=== PATIENT | male | born 1955 | race Caucasian/White ===

== ENCOUNTER 2017-09-28 19:18 | Emergency (ER) ==
[2017-09-28 19:21] VITALS: BP 110/73; TEMP 98.1; BMI 25.1
[2017-09-28] MEDS ORDERED: DECADRON 4 MG/ML SDV IM STA (19:47)
--- NOTE | 2017-09-28 19:54 | ED.PDOC ---
General ED Provider: Dr. WANDA NORTON Chief Complaint: Fever Stated Complaint: COUGHING, CONGESTED. FEVERISH. Time Seen by Physician: 19:54 Primary Care Provider: JEFFERSON WALL Nursing and Triage Documentation Reviewed and Agree: Yes Reviewed sepsis parameters & appropriate labs ordered?: Yes System Inflammatory Response Syndrome: Not Applicable Sepsis Protocol: For patient's 13 years and over: Temp is 96.8 and below OR 101 and greater Pulse >90 BPM Resp >20/minute Acutely Altered Mental Status Are patient's symptoms suggestive of a new infection, such as: -Pneumonia -Skin, Soft Tissue -Endocarditis -UTI -Bone, Joint Infection -Implantable Device -Acute Abdominal Infection -Wound Infection -Meningitis -Blood Stream Catheter Infection -Unknown Respiratory Complaint Exam - Respiratory Complaint/Exam Symptoms Are: Still present Timing: Constant Initial Severity: Mild Current Severity: Mild Location: Chest Character: Reports: Productive cough Aggravating: Reports: Allergens, URI Alleviating: Reports: None Associated Signs and Symptoms: Reports: Fever, URI, Nasal congestion. Denies: Rapid breathing, Dyspnea, Chills, Chest pain, Pleuritic chest pain, Wheezing, Hemoptysis, Dizziness, Calf pain, Calf swelling, Edema, Hoarseness, Sinus discomfort, Vomiting, Sore throat, Weight loss, Decreased oral intake, Increased thirst, Increased appetite, Increased urination History of Healthcare-Acquired Pneumonia: No Related Surgical History: Reports: None Pulmonary Embolism Risk Factors: None Cardiac Risk Factors: Reports: None Pseudomonas Risk Factors: Reports: None Tuberculosis Risk Factors: Reports: None Status Asthmaticus Risk Factors: Reports: None Home Oxygen Use: No Recent Stress Test: No Recent Echo/LV Function: No Current Antibiotic Use: No Current Asthma Medication Use: No Respiratory Distress: None Inadequate Respiratory Effort: No Dysphagia Present: No Stridor Present: No JVD Present: No Accessory Muscle Use: No Retractions: Not Present Diminished Breath Sounds: No Sinus Tenderness: None Grunting Respirations: No Kussmaul Respirations: No Differential Diagnoses: Pneumonia, Bronchitis, Influenza Review of Systems - Review Of Systems Constitutional: Reports: Fever, Malaise Eyes: Reports: No symptoms Ears, Nose, Mouth, Throat: Reports: No symptoms Respiratory: Reports: Cough Cardiac: Reports: No symptoms GI: Reports: No symptoms : Reports: No symptoms Musculoskeletal: Reports: No symptoms Skin: Reports: No symptoms Neurological: Reports: No symptoms Endocrine: Reports: No symptoms Hematologic/Lymphatic: Reports: No symptoms All Other Systems: Reviewed and Negative Past Medical History - Past Medical History Previously Healthy: Yes Endocrine: Reports: None Cardiovascular: Reports: None Respiratory: Reports: None Hematological: Reports: None Gastrointestinal: Reports: None Genitourinary: Reports: None Neuro/Psych: Reports: None Musculoskeletal: Reports: None Cancer: Reports: None - Surgical History General Surgical History: Reports: None - Family History Family History: Reports: None - Social History Smoking Status: Current every day smoker, Heavy tobacco smoker Smoking Cessation Counseling Time: > 10 min Hx Substance Use: No Alcohol Screening: Occasionally - Immunizations Tetanus Shot up to Date: Yes Physical Exam - Physical Exam Appearance: Ill-appearing Ill-appearing: Mild Eyes: STEVEN, EOMI, Conjunctiva clear ENT: Ears normal, Nose normal, Oropharynx normal Respiratory: Airway patent, Breath sounds clear, Breath sounds equal, Respirations nonlabored Cardiovascular: RRR, Pulses normal, No rub, No murmur GI/: Soft, Nontender, No masses, Bowel sounds normal, No Organomegaly Musculoskeletal: Normal strength, ROM intact, No edema, No calf tenderness Skin: Warm, Dry, Normal color Neurological: Sensation intact, Motor intact, Reflexes intact, Cranial nerves intact, Alert, Oriented Psychiatric: Affect appropriate, Mood appropriate Critical Care Note - Critical Care Note Total Time (mins): 0 Course - Course Orders, Labs, Meds: Lab Review 09/28/17 19:49 Influenza A (Rapid) Negative Influenza B (Rapid) Negative Orders Category Date Time Status MOLECULAR GROUP A STREP Stat LAB 09/28/17 19:49 Results RAPID FLU A/B Stat LAB 09/28/17 19:49 Completed STREP SCREEN Stat LAB 09/28/17 19:49 Results Dexamethasone 4 mg/ml Inj [Decadron 4 mg/ml Sdv] MEDS 09/28/17 19:47 Discontinued 4 mg IM ONCE STA CHEST, 2 VIEWS PA & LAT Stat RADS 09/28/17 19:47 Completed Medications Discontinued Medications Generic Name Dose Route Start Last Admin Trade Name Freq PRN Reason Stop Dose Admin Dexamethasone Sodium Phosphate 4 mg 09/28/17 19:47 09/28/17 19:56 Decadron 4 Mg/Ml Sdv IM 09/28/17 19:48 4 mg ONCE STA Administration Vital Signs: Temp Pulse Resp BP Pulse Ox 09/28/17 19:18 98.1 F 85 20 110/73 96 Departure - Departure Time of Disposition: 19:57 Disposition: HOME SELF-CARE Discharge Problem: URTI (acute upper respiratory infection) Instructions: Upper Respiratory Infection (ED) Condition: Good Pt referred to PMD for follow-up: Yes Additional Instructions: Increase Hydration Tylenol or Ibuprofen prn Has f/u with PMD in am Allergies/Adverse Reactions: Allergies codeine Adverse Reaction (Verified 05/03/13 16:37) Penicillins Adverse Reaction (Verified 12/06/14 13:48) Home Medications: Ambulatory Orders Albuterol Sulfate [Ventolin Hfa] 18 gm IH DIRECTED 05/03/13 Cyclobenzaprine HCl 10 mg PO BID 05/03/13 Duloxetine HCl [Cymbalta] 60 mg PO BEDTIME 05/03/13 Esomeprazole Magnesium [Nexium] 40 mg PO DAILY PRN 05/03/13 Fluticasone Propionate 110 Mcg [Flovent Hfa 110 Mcg] 110 mcg MARCY DAILY 05/03/13 Omeprazole [Prilosec] 20 mg PO QDAC PRN 05/03/13 Zolpidem Tartrate 10 mg PO BEDTIME 05/03/13 Lorazepam [Ativan] 0.5 mg PO QID #20 tablet 12/06/14 Oxycodone-Acetaminophen 10-325 [Percocet 10-325] 1 tab PO Q8H PRN 09/28/17 Disposition Discussed With: Patient
--- NOTE | 2017-09-28 20:28 | DI ---
EXAM: Chest two views HISTORY: Coughing COMPARISON: 04/12/2009 TECHNIQUE: Two views of the chest were performed FINDINGS: No airspace consolidation. Granulomatous calcification. There is no pleural effusion or pneumothorax. The heart is normal in size. The mediastinal contour is normal. There are no acute a bnormalities of the bones. There is a spinal stimulator. Cervical spinal fusion hardware. IMPRESSION: No acute cardiopulmonary process.
[2017-09-28 20:32] LABS: FLU INTERNAL QC INTERNAL QC VALID; MOLECULAR FLU A NEGATIVE (NEGATIVE); MOLECULAR FLU B NEGATIVE (NEGATIVE)
== END 2017-09-28 20:20 | disposition home or self-care (01) ==
LOC: ED 19:18
DX: J06.9 Acute upper respiratory infection, unspecified (principal); F17.210 Nicotine dependence, cigarettes, uncomplicated
CPT/HCPCS: 87651; 87804; 87880; 96372; 99283

== ENCOUNTER 2017-10-02 13:19 | Inpatient (IN) ==
[2017-10-02 13:23] VITALS: BMI 25.8
[2017-10-02] MEDS ORDERED: SOLU-MEDROL 125 MG IVP STA (13:58)
[2017-10-02] MEDS ORDERED: DUONEB NEB STA ×2 (13:58→14:59)
[2017-10-02] MEDS ORDERED: SOLU-MEDROL 40 MG IVP STA (14:03)
[2017-10-02] MEDS ORDERED: MORPHINE 2 MG/ML SYRINGE IM STA (14:55)
[2017-10-02] MEDS ORDERED: ZITHROMAX PO STA ×2 (14:55→17:43)
[2017-10-02] MEDS ORDERED: ROCEPHIN IM STA (14:55)
[2017-10-02] MEDS ORDERED: LIDOCAINE HCL 1% SDV SUBCUT STA (14:55)
[2017-10-02] MEDS ORDERED: MORPHINE 2 MG/ML SYRINGE IVP STA (15:02)
[2017-10-02] MEDS ORDERED: ROCEPHIN 1 GM in SODIUM CHLORIDE 50 ML IV STA (15:02)
[2017-10-02] MEDS ORDERED: ROCEPHIN ONE (15:14)
--- NOTE | 2017-10-02 15:49 | CT ---
EXAM: CTA of the chest. History: Short of breath Comparison: Chest radiograph 10/02/2017 Technique: Multiplanar CT images through the thorax were obtained following administration of IV con trast. MIP images and 3-D reconstructions were also obtained. Findings: Heart size is normal. Trace anterior pericardial fluid. Great vessels are unremarkable. N o pulmonary arterial filling defects. No axillary adenopathy. No pathologically enlarged mediastina l lymph nodes. Bilateral hilar lymphadenopathy measuring up to 1.5 cm and 1.9 cm on the left. Diffus e bronchial wall thickening and patchy bilateral lung infiltrates with a ground-glass opacities and m icronodules. No pleural fluid and no pneumothorax. Mild emphysema. Within the visualized upper abdomen, there is pancreatic atrophy. Status post cholecystectomy. Mild right renal pelvicaliectasis of unknown etiology. No acute osseous abnormalities. Spinal stimulator device. Impression: 1. Bilateral pneumonia. 2. Bilateral hilar lymphadenopathy could be reactive or neoplastic. Follow-up recommended. 3. Pancreatic atrophy. 4. Mild right renal pelvicaliectasis but no etiology. Five. Mild emphysema
--- NOTE | 2017-10-02 16:18 | ED.PDOC ---
General ED Provider: Dr. TRAM THOMPSON Chief Complaint: Shortness of Air Stated Complaint: shortness of breath Time Seen by Physician: 13:30 Mode of Arrival: Walk-In Information Source: Patient Exam Limitations: No limitations Primary Care Provider: JEFFERSON WALL Nursing and Triage Documentation Reviewed and Agree: Yes Reviewed sepsis parameters & appropriate labs ordered?: Yes (seen with staff short of air wheezing) System Inflammatory Response Syndrome: Not Applicable Sepsis Protocol: For patient's 13 years and over: Temp is 96.8 and below OR 101 and greater Pulse >90 BPM Resp >20/minute Acutely Altered Mental Status Are patient's symptoms suggestive of a new infection, such as: -Pneumonia -Skin, Soft Tissue -Endocarditis -UTI -Bone, Joint Infection -Implantable Device -Acute Abdominal Infection -Wound Infection -Meningitis -Blood Stream Catheter Infection -Unknown Respiratory Complaint Exam - Respiratory Complaint/Exam Onset/Duration: 2 days of cough short of air flu like symptoms Symptoms Are: Still present Timing: Intermittent Initial Severity: Moderate Current Severity: Mild Location: Nose, Throat, Chest Character: Reports: Non-productive cough Aggravating: Reports: URI, Weather, Deep breaths, Recumbent position Alleviating: Reports: Bronchodilators, Spontaneous resolution Associated Signs and Symptoms: Reports: Fever, Chills, Wheezing, URI, Nasal congestion, Decreased oral intake. Denies: Rapid breathing, Dyspnea, Chest pain , Pleuritic chest pain, Hemoptysis, Dizziness, Calf pain, Calf swelling, Edema, Hoarseness, Sinus discomfort, Vomiting, Sore throat, Weight loss, Increased thirst, Increased appetite, Increased urination History of Healthcare-Acquired Pneumonia: No Related Surgical History: Reports: None Pulmonary Embolism Risk Factors: None Cardiac Risk Factors: Reports: None Pseudomonas Risk Factors: Reports: None Tuberculosis Risk Factors: Reports: None Status Asthmaticus Risk Factors: Reports: None Home Oxygen Use: No Recent Stress Test: No Recent Echo/LV Function: No Current Antibiotic Use: No Current Asthma Medication Use: No Respiratory Distress: None Inadequate Respiratory Effort: No Dysphagia Present: No Stridor Present: No JVD Present: No Accessory Muscle Use: No Retractions: Not Present Diminished Breath Sounds: No Sinus Tenderness: None Grunting Respirations: No Kussmaul Respirations: No Differential Diagnoses: Pneumonia, Bronchitis Review of Systems - Review Of Systems Constitutional: Reports: No symptoms Eyes: Reports: No symptoms Ears, Nose, Mouth, Throat: Reports: No symptoms Respiratory: Reports: No symptoms Cardiac: Reports: No symptoms GI: Reports: No symptoms : Reports: No symptoms Musculoskeletal: Reports: No symptoms Skin: Reports: No symptoms Neurological: Reports: No symptoms Endocrine: Reports: No symptoms Hematologic/Lymphatic: Reports: No symptoms All Other Systems: Reviewed and Negative Past Medical History - Past Medical History Previously Healthy: Yes Endocrine: Reports: None Cardiovascular: Reports: None Respiratory: Reports: None Hematological: Reports: None Gastrointestinal: Reports: None Genitourinary: Reports: None Neuro/Psych: Reports: None Musculoskeletal: Reports: None Cancer: Reports: None - Surgical History General Surgical History: Reports: None - Family History Family History: Reports: None - Social History Smoking Status: Current every day smoker, Heavy tobacco smoker Hx Substance Use: No Alcohol Screening: Occasionally - Immunizations Tetanus Shot up to Date: No Physical Exam - Physical Exam Appearance: Ill-appearing Ill-appearing: Moderate Pain Distress: Moderate Eyes: STEVEN, EOMI, Conjunctiva clear ENT: Ears normal, Nose normal, Oropharynx normal Respiratory: Breath sounds diminished, Rhonchi Cardiovascular: RRR, Pulses normal, No rub, No murmur GI/: Soft, Nontender, No masses, Bowel sounds normal, No Organomegaly Musculoskeletal: Normal strength, ROM intact, No edema, No calf tenderness Skin: Warm, Dry, Normal color Neurological: Sensation intact, Motor intact, Reflexes intact, Cranial nerves intact, Alert, Oriented Psychiatric: Affect appropriate, Mood appropriate Interpretation - Radiology Interpretation Radiology Interpretation By: Radiologist Radiology Results: Positive (pneumonia) Critical Care Note - Critical Care Note Total Time (mins): 0 Course - Course Hematology/Chemistry: 10/02/17 14:05 10/02/17 14:05 Orders, Labs, Meds: Lab Review 10/02/17 10/02/17 10/02/17 13:59 14:05 14:05 WBC 8.00 RBC 4.32 L Hgb 13.3 L Hct 38.6 L MCV 89.4 MCH 30.8 MCHC 34.5 RDW Coeff of Irina 13.1 Plt Count 303 Neutrophils % (Manual) 76.0 H Band Neutrophils % 3.0 Lymphocytes % (Manual) 9.0 L Monocytes % (Manual) 9.0 Reactive Lymphocytes 3.0 Anisocytosis Not present D-Dimer (Manual) Puncture Site R rad O2 Saturation 90.0 L ABG pH 7.45 ABG pCO2 38.0 ABG pO2 57.0 L* ABG HCO3 26.8 H ABG Total CO2 28 ABG Base Excess 3 H Leandro Test + FiO2 % 21.0 Sodium 136 Potassium 3.6 Chloride 98 Carbon Dioxide 29 Anion Gap 12.6 BUN 9 Creatinine 0.76 Estimated GFR (MDRD) 104.00 BUN/Creatinine Ratio 11.84 Glucose 115 Lactic Acid Calcium 9.7 Total Bilirubin < 0.3 AST 16 ALT 21 Alkaline Phosphatase 89 Total Creatine Kinase 48 Troponin I < 0.0100 B-Natriuretic Peptide Total Protein 7.4 Albumin 3.5 Globulin 3.9 Albumin/Globulin Ratio 0.90 Procalcitonin Urine Color Urine Clarity Urine pH Ur Specific [place] Urine Protein Urine Glucose (UA) Urine Ketones Urine Blood Urine Nitrite Urine Bilirubin Urine Urobilinogen Ur Leukocyte Esterase Influenza A (Rapid) Influenza B (Rapid) 10/02/17 10/02/17 10/02/17 14:05 14:05 14:05 WBC RBC Hgb Hct MCV MCH MCHC RDW Coeff of Irina Plt Count Neutrophils % (Manual) Band Neutrophils % Lymphocytes % (Manual) Monocytes % (Manual) Reactive Lymphocytes Anisocytosis D-Dimer (Manual) 552.04 Puncture Site O2 Saturation ABG pH ABG pCO2 ABG pO2 ABG HCO3 ABG Total CO2 ABG Base Excess Leandro Test FiO2 % Sodium Potassium Chloride Carbon Dioxide Anion Gap BUN Creatinine Estimated GFR (MDRD) BUN/Creatinine Ratio Glucose Lactic Acid 14.2 Calcium Total Bilirubin AST ALT Alkaline Phosphatase Total Creatine Kinase Troponin I B-Natriuretic Peptide 200 H Total Protein Albumin Globulin Albumin/Globulin Ratio Procalcitonin Urine Color Urine Clarity Urine pH Ur Specific [place] Urine Protein Urine Glucose (UA) Urine Ketones Urine Blood Urine Nitrite Urine Bilirubin Urine Urobilinogen Ur Leukocyte Esterase Influenza A (Rapid) Influenza B (Rapid) 10/02/17 10/02/17 10/02/17 14:05 14:05 15:43 WBC RBC Hgb Hct MCV MCH MCHC RDW Coeff of Irina Plt Count Neutrophils % (Manual) Band Neutrophils % Lymphocytes % (Manual) Monocytes % (Manual) Reactive Lymphocytes Anisocytosis D-Dimer (Manual) Puncture Site O2 Saturation ABG pH ABG pCO2 ABG pO2 ABG HCO3 ABG Total CO2 ABG Base Excess Leandro Test FiO2 % Sodium Potassium Chloride Carbon Dioxide Anion Gap BUN Creatinine Estimated GFR (MDRD) BUN/Creatinine Ratio Glucose Lactic Acid Calcium Total Bilirubin AST ALT Alkaline Phosphatase Total Creatine Kinase Troponin I B-Natriuretic Peptide Total Protein Albumin Globulin Albumin/Globulin Ratio Procalcitonin < 0.05 Urine Color Yellow Urine Clarity Clear Urine pH 7.5 Ur Specific [place] 1.015 Urine Protein Negative Urine Glucose (UA) Negative Urine Ketones Negative Urine Blood Negative Urine Nitrite Negative Urine Bilirubin Negative Urine Urobilinogen 1.0 Ur Leukocyte Esterase Negative Influenza A (Rapid) Negative by naat Influenza B (Rapid) Positive by naat H Orders Category Date Time Status ABG DRAW REQUEST Stat CARDIO 10/02/17 14:00 Completed EKG-(ED ONLY) Stat CARDIO 10/02/17 13:57 Completed NEBULIZER TREATMENT Stat CARDIO 10/02/17 13:58 Completed NEBULIZER TREATMENT Stat CARDIO 10/02/17 14:59 Completed NPO REMINDER: IMAGING ONCE CARE 10/02/17 14:59 Completed ED IV/MEDIPORT/POWERPORT .ONCE EMERGENCY 10/02/17 13:57 Active ABG Stat LAB 10/02/17 13:59 Completed B-TYPE NATRIURETIC PEPTIDE Stat LAB 10/02/17 14:05 Completed BLOOD CULTURE (ED ONLY) Stat LAB 10/02/17 14:05 Received CBC W/ AUTO DIFF Stat LAB 10/02/17 14:05 Completed COMPREHENSIVE METABOLIC PANEL Stat LAB 10/02/17 14:05 Completed CREATINE KINASE Stat LAB 10/02/17 14:05 Completed D-DIMER Stat LAB 10/02/17 14:05 Completed LACTIC ACID Stat LAB 10/02/17 14:05 Completed MANUAL DIFFERENTIAL Stat LAB 10/02/17 14:05 Completed PROCALCITONIN Stat LAB 10/02/17 14:05 Completed RAPID FLU A/B Stat LAB 10/02/17 14:05 Completed TROPONIN I Stat LAB 10/02/17 14:05 Completed URINALYSIS C & S IF INDICATED Stat LAB 10/02/17 15:43 Completed 0.9 % Sodium Chloride [Saline Flush] MEDS 10/02/17 13:57 Active 1 syr IVF PRN PRN Azithromycin [Zithromax] MEDS 10/02/17 14:55 Discontinued 1,000 mg PO ONCE STA Ceftriaxone Sodium [Rocephin] MEDS 10/02/17 15:14 Discontinued 1 gm .ROUTE .STK-MED ONE Ceftriaxone Sodium [Rocephin] 1 gm MEDS 10/02/17 15:02 Discontinued 0.9 % Sodium Chloride [Sodium Chloride] 50 ml IV ONCE Ipratropium/Albuterol Neb [Duoneb] MEDS 10/02/17 13:58 Discontinued 1 vial NEB ONCE STA Ipratropium/Albuterol Neb [Duoneb] MEDS 10/02/17 14:59 Discontinued 1 vial NEB ONCE STA Methylprednisolone Sod Succ/Pf [Solu-Medrol 40 mg] MEDS 10/02/17 14:03 Discontinued 40 mg IVP ONCE STA Morphine Sulfate [Morphine 2 mg/ml Syringe] MEDS 10/02/17 15:02 Discontinued 2 mg IVP ONCE STA CHEST, 2 VIEWS PA & LAT Stat RADS 10/02/17 14:[address] CHEST PE PROTOCOL Stat RADS 10/02/17 14:58 Completed Medications Generic Name Dose Route Start Last Admin Trade Name Freq PRN Reason Stop Dose Admin Sodium Chloride 1 syr 10/02/17 13:57 10/02/17 15:11 Saline Flush IVF 1 syr PRN PRN Administration To flush IV Discontinued Medications Generic Name Dose Route Start Last Admin Trade Name Freq PRN Reason Stop Dose Admin Albuterol/Ipratropium 1 vial 10/02/17 13:58 10/02/17 13:50 Duoneb NEB 10/02/17 13:59 1 vial ONCE STA Administration Albuterol/Ipratropium 1 vial 10/02/17 14:59 10/02/17 15:07 Duoneb NEB 10/02/17 15:00 1 vial ONCE STA Administration Azithromycin 1,000 mg 10/02/17 14:55 10/02/17 15:31 Zithromax PO 10/02/17 14:56 1,000 mg ONCE STA Administration Ceftriaxone Sodium 1 gm/ 50 mls @ 75 mls/hr 10/02/17 15:02 10/02/17 15:38 Sodium Chloride IV 10/02/17 15:41 75 mls/hr ONCE STA Administration Methylprednisolone Sodium Succinate 40 mg 10/02/17 14:03 10/02/17 14:20 Solu-Medrol 40 Mg IVP 10/02/17 14:04 40 mg ONCE STA Administration Morphine Sulfate 2 mg 10/02/17 15:02 10/02/17 15:10 Morphine 2 Mg/Ml Syringe IVP 10/02/17 15:03 2 mg ONCE STA Administration Vital Signs: Temp Pulse Resp BP Pulse Ox 10/02/17 13:21 96.7 F L 80 20 124/63 94 L Departure - Departure Time of Disposition: 16:20 (pt stated his is wheel chair bound must care for her it is xmass and will not be admitted , possible neoplastic process discussed ) Disposition: AMA Discharge Problem: Pneumonia Qualifiers: Pneumonia type: due to unspecified organism Laterality: bilateral Instructions: Pneumonitis (ED) Condition: Good Pt referred to PMD for follow-up: Yes Additional Instructions: Please call your Family Physician as soon as possible to schedule a follow-up appointment. you have pneumonia in both sided of your lung. your not oxygenating all that well.this is super dangerous . also there is possibility that you may have lung cancer Allergies/Adverse Reactions: Allergies codeine Adverse Reaction (Verified 10/02/17 13:20) Penicillins Adverse Reaction (Verified 10/02/17 13:20) Home Medications: Ambulatory Orders Albuterol Sulfate [Ventolin Hfa] 18 gm IH DIRECTED 05/03/13 Cyclobenzaprine HCl 10 mg PO BID 05/03/13 Duloxetine HCl [Cymbalta] 60 mg PO BEDTIME 05/03/13 Esomeprazole Magnesium [Nexium] 40 mg PO DAILY PRN 05/03/13 Fluticasone Propionate 110 Mcg [Flovent Hfa 110 Mcg] 110 mcg MARCY DAILY 05/03/13 Omeprazole [Prilosec] 20 mg PO QDAC PRN 05/03/13 Zolpidem Tartrate 10 mg PO BEDTIME 05/03/13 Lorazepam [Ativan] 0.5 mg PO QID #20 tablet 12/06/14 Oxycodone-Acetaminophen 10-325 [Percocet 10-325] 1 tab PO Q8H PRN 09/28/17 Disposition Discussed With: Patient
--- NOTE | 2017-10-02 16:29 | DI ---
EXAM: Two views of the chest. History: Short of breath Comparison: Chest CT 10/02/2017 Findings: Heart size is within normal limits. Patchy bilateral hazy lung infiltrates. Spinal stimu lator device. No pleural fluid and no pneumothorax. No acute osseous abnormalities. Impression: Mild bilateral pneumonia.
[2017-10-02] MEDS ORDERED: ZITHROMAX 500 MG in SODIUM CHLORIDE 250 ML IV STA (17:34)
[2017-10-02] MEDS ORDERED: VANCOMYCIN 1,000 MG in SODIUM CHLORIDE 200 ML IV STA (17:34)
[2017-10-02] MEDS ORDERED: VANCOMYCIN ONE ×2 (17:48→18:10)
[2017-10-02] MEDS ORDERED: DUONEB NEB SCH (18:00)
[2017-10-02] MEDS ORDERED: SODIUM CHLORIDE 100 ML IV ONE ×2 (18:10)
[2017-10-02] MEDS: SODIUM CHLORIDE 1,000 ML IV SCH (18:44)
[2017-10-02] MEDS: PERCOCET 10-325 PO PRN (19:54)
[2017-10-02] MEDS ORDERED: NON-FORMULARY MEDICATION (Zolpidem Tartrate [Zolpidem Tartrate] 10 MG) PO SCH (21:00)
[2017-10-02] MEDS ORDERED: AMBIEN ONE (21:27)
[2017-10-02] MEDS: SOLU-MEDROL 125 MG IVP SCH (21:32)
[2017-10-02] MEDS: CYMBALTA PO SCH (21:33)
[2017-10-02] MEDS: FLEXERIL PO SCH (21:33)
[2017-10-02] MEDS: ATIVAN PO SCH (21:33)
[2017-10-02] MEDS: DUONEB NEB SCH (23:53)
[2017-10-03] MEDS: DUONEB NEB SCH ×6 (02:30→23:35)
[2017-10-03] MEDS: PERCOCET 10-325 PO PRN ×4 (04:08→19:54)
[2017-10-03] MEDS: SOLU-MEDROL 125 MG IVP SCH ×3 (04:11→21:14)
[2017-10-03] MEDS: SODIUM CHLORIDE 1,000 ML IV SCH ×2 (09:18→22:51)
[2017-10-03] MEDS: ROCEPHIN 1 GM in SODIUM CHLORIDE 50 ML IV SCH (09:22)
--- NOTE | 2017-10-03 09:26 | DI ---
EXAM: CHEST FRONTAL AND LATERAL VIEWS HISTORY: Pneumonia, follow-up. COMPARISON: 10/02/2017 FINDINGS: Heart size remains within normal limits. There are scattered calcifications suggesting old granulomatous disease. No acute infiltrates are seen. No vascular congestion. There is no consoli dation, visible pleural fluid or pneumothorax. Bones reveal no acute fracture. IMPRESSION: No acute cardiopulmonary process.
[2017-10-03] MEDS: FLEXERIL PO SCH ×2 (09:27→20:00)
[2017-10-03] MEDS: ATIVAN PO SCH ×4 (09:29→20:01)
[2017-10-03] MEDS: CYMBALTA PO SCH (20:00)
[2017-10-03] MEDS: AMBIEN PO SCH (20:01)
[2017-10-04] MEDS: PERCOCET 10-325 PO PRN ×6 (00:41→20:31)
[2017-10-04] MEDS: DUONEB NEB SCH ×5 (02:38→21:52)
[2017-10-04] MEDS: SOLU-MEDROL 125 MG IVP SCH ×2 (05:22→14:16)
[2017-10-04] MEDS: ATIVAN PO SCH ×4 (08:14→20:33)
[2017-10-04] MEDS: FLEXERIL PO SCH ×2 (08:15→20:32)
[2017-10-04] MEDS: ROCEPHIN 1 GM in SODIUM CHLORIDE 50 ML IV SCH (08:17)
[2017-10-04] MEDS ORDERED: FLONASE NAS PRN (08:23)
[2017-10-04] MEDS: SODIUM CHLORIDE 1,000 ML IV SCH (13:09)
[2017-10-04] MEDS ORDERED: ULTRAM PO PRN (16:57)
[2017-10-04] MEDS: K-DUR PO SCH (17:35)
--- NOTE | 2017-10-04 17:43 | DI ---
EXAM: Two views of the chest. History: Pneumonia Comparison: Chest radiograph 10/03/2017, chest CT 10/02/2017 Findings: Heart size is within normal limits. Hazy right upper lung opacity is new. No appreciable pleural fluid and no pneumothorax. No acute osseous abnormalities. Spinal Scimed device. Postsurgi dennis changes of the cervical spine. Impression: New hazy right upper lung opacities concerning for pneumonia. Follow-up recommended.
[2017-10-04] MEDS: OMNICEF PO SCH (20:31)
[2017-10-04] MEDS: CYMBALTA PO SCH (20:32)
[2017-10-04] MEDS: AMBIEN PO SCH (20:32)
[2017-10-05] MEDS: PERCOCET 10-325 PO PRN ×4 (01:23→13:58)
[2017-10-05] MEDS: DUONEB NEB SCH ×3 (05:26→14:12)
[2017-10-05] MEDS ORDERED: PREDNISONE PO SCH (08:00)
[2017-10-05] MEDS: FLEXERIL PO SCH (09:12)
[2017-10-05] MEDS: OMNICEF PO SCH (09:12)
[2017-10-05] MEDS: ATIVAN PO SCH ×2 (09:13→13:57)
[2017-10-05] MEDS: K-DUR PO SCH (09:13)
--- NOTE | 2017-10-05 09:24 | PN ---
DATE OF SERVICE: 10/03/17 SUBJECTIVE: The patient was admitted with progressive shortness of breath and continued cough for several days. He was influenza B positive. His chest x-ray showed bilateral lobe pneumonia. He was adequately saturating from a respiratory standpoint. I started him on steroids. He is breathing better with less cough today. He says he is not getting his pain medications like he does at home. His chronic back pain is worse. He denies diarrhea or vomiting. OBJECTIVE: V/S: Temperature 97.6, pulse 80, respirations 24, BP 138/60. GENERAL: No obvious distress. CHEST: A few scattered crackles. Soft expiratory wheeze bilaterally. No dullness to percussion. CARDIOVASCULAR: S1, S2 regular without murmur or peripheral edema. GI: Nontender. No organomegaly or mass. MUSCULOSKELETAL: No point tenderness of the back. ASSESSMENT: # Shortness of breath - related to influenza and pneumonia # Cough - same # Fatigue - same # Influenza B # Pneumonia - bilateral lower lobe # Chronic back pain with acute worsening PLAN: 1. Medications reviewed - increase his pain medication to q.4 2. Labs reviewed - same 3. Diet same 4. IV fluids - same 5. Above maintenance dosing 6. Activity: a) Encourage to at least be out of bed 7. Imaging - may get a chest x-ray tomorrow 8. Discharge planning - he assumes home; will need to show some stability with vitals and resolve his chest findings on exam. 9. Code status full MTDD
--- NOTE | 2017-10-05 09:37 | PN ---
DATE OF SERVICE: 10/04/17 CHIEF COMPLAINT: "I was short of breath." BRIEF HISTORY OF PRESENT ILLNESS: The patient presented to the ED with shortness of breath and cough. He had been in the ED 09/25/17 and was flu negative; was given antibiotic. He was seen in the office on 09/30 and Medrol was added. He did not improve, only worsened and presented to the ER. He was found to have bilateral lower lobe infiltrates. This time he was influenza B positive. Admission for nebulized bronchodilator, IV fluids and steroids were entertained. He has chronic back pain, since here has been worse. He is drinking and voiding, eating and stooling without diarrhea. He is up and about the room. OBJECTIVE: Temperature 97.8, pulse 82, BP 140/87, respiratory rate 20 and all of this is a consistent pattern. Laboratory show a white count today of 13 vs normal 8 to 12 (after steroids), hemoglobin 11.6 vs 13 and 12. GENERAL: No obvious distress. CHEST: Much improved with barely any chest congestion or wheeze. CARDIOVASCULAR: Regular without murmurs, rubs or peripheral edema. GI: Nontender. EXTREMITIES: Negative straight leg raising. No palpable tenderness of the lower extremities or joints. ASSESSMENT: # SHORTNESS OF BREATH - ACUTE - RESOLVED # COUGH - ACUTE BRONCHITIS OR PNEUMONIA - IMPROVING # FATIGUE - ASSOCIATED WITH # INFLUENZA B # PNEUMONIA - BILATERAL LOWER LOBE # BRONCHITIS # ACUTE BACK PAIN ON CHRONIC - HE RELATES THIS IS FROM SLEEPING IN THIS HOSPITAL BED # ANEMIA 11.6 - DILUTIONAL AND PHLEBOTOMY RELATED PLAN: 1. Medications: a) Stop IV and switch from IV Solu-Medrol to p.o. Prednisone b) Rocephin to Omnicef c) Add Ultram for increased pain 2. Laboratories - same 3. Imaging - chest x-ray as noted. 4. Discharge Planning - he expects home (his was admitted today but he still could possibly go home tomorrow) 5. Code status - full MTDD
[2017-10-05 13:27] VITALS: BP 142/78; TEMP 97.5
== END 2017-10-05 17:10 | disposition home or self-care (01) | DRG 195 ==
LOC: ED 13:19 → MEDSURG A 17:34
PROVIDERS: ADMIT Family Medicine; ATTEND Family Medicine
DX: J18.9 Pneumonia, unspecified organism (principal); J11.1 Influenza due to unidentified influenza virus with other respiratory manifestations; J20.9 Acute bronchitis, unspecified; R06.02 Shortness of breath; M54.9 Dorsalgia, unspecified; G89.29 Other chronic pain; J01.90 Acute sinusitis, unspecified; R07.81 Pleurodynia; R91.8 Other nonspecific abnormal finding of lung field; E87.6 Hypokalemia; D64.9 Anemia, unspecified; R53.83 Other fatigue; F17.200 Nicotine dependence, unspecified, uncomplicated; Z79.891 Long term (current) use of opiate analgesic; Z79.899 Other long term (current) drug therapy
CPT/HCPCS: 36415; 80048; 80053; 81001; 82550; 82803; 83605; 83880; 84145; 84484; 85007; 85025; 85379; 87040; 87502; 93005; 93010; 94640; 96365; 96367; 96375; 99284

== ENCOUNTER 2018-03-13 17:40 | Emergency (ER) ==
[2018-03-13 17:46] VITALS: BP 133/82; TEMP 98.1; BMI 26.4
--- NOTE | 2018-03-13 17:55 | ED.PDOC ---
General ED Provider: Dr. TRAM THOMPSON Chief Complaint: Hand Pain/Injury Stated Complaint: hand laceration right Time Seen by Physician: 17:53 (pt had a laceration which he taped himself a week ago) Mode of Arrival: Walk-In Information Source: Patient Exam Limitations: No limitations Primary Care Provider: JEFFERSON WALL Nursing and Triage Documentation Reviewed and Agree: Yes (seen with gina harrison RN at all times ) Reviewed sepsis parameters & appropriate labs ordered?: Yes (see photos) System Inflammatory Response Syndrome: Not Applicable Sepsis Protocol: For patient's 13 years and over: Temp is 96.8 and below OR 101 and greater Pulse >90 BPM Resp >20/minute Acutely Altered Mental Status Are patient's symptoms suggestive of a new infection, such as: -Pneumonia -Skin, Soft Tissue -Endocarditis -UTI -Bone, Joint Infection -Implantable Device -Acute Abdominal Infection -Wound Infection -Meningitis -Blood Stream Catheter Infection -Unknown Musculoskeletal Complaint Exam - Hand/Wrist Complaint/Exam Location of Pain: Reports: Right, Hand (base of the right thumb ) Mechanism of Injury: Reports: Trauma (laceration 1 week ago) Onset/Duration: 7 days see photos Symptoms Are: Still present Onset of Pain: Reports: Days Initial Severity: Mild Current Severity: Mild Location: Reports: Discrete Character: Reports: Aching Alleviating: Reports: Rest Aggravating: Reports: Movement Associated Signs and Symptoms: Reports: Redness. Denies: Swelling, Bruising, Fever, Weakness, Numbness, Tingling Dominant Hand: Right Related Surgical History: Reports: None Hand/Wrist Findings: Present: Laceration. Absent: Ecchymosis, Abnormal contour , Rotation, Ligamentous instability, Tinel's Sign, Phalen's Sign, Nail avulsion , Subungal hematoma, Erythema, Warmth Differential Diagnoses: Cellulitis Review of Systems - Review Of Systems Constitutional: Reports: No symptoms Eyes: Reports: No symptoms Ears, Nose, Mouth, Throat: Reports: No symptoms Respiratory: Reports: No symptoms Cardiac: Reports: No symptoms GI: Reports: No symptoms : Reports: No symptoms Musculoskeletal: Reports: No symptoms Skin: Reports: Rash (see photos 1 cm healing laceration) Neurological: Reports: No symptoms Endocrine: Reports: No symptoms Hematologic/Lymphatic: Reports: No symptoms All Other Systems: Reviewed and Negative Past Medical History - Past Medical History Previously Healthy: Yes Endocrine: Reports: None Cardiovascular: Reports: None Respiratory: Reports: None Hematological: Reports: None Gastrointestinal: Reports: None Genitourinary: Reports: None Neuro/Psych: Reports: None Musculoskeletal: Reports: None Cancer: Reports: None - Surgical History General Surgical History: Reports: None - Family History Family History: Reports: None - Social History Smoking Status: Current every day smoker, Heavy tobacco smoker Hx Substance Use: No Alcohol Screening: None - Immunizations Tetanus Shot up to Date: (2 yrs) Physical Exam - Physical Exam Appearance: Well-appearing, No pain distress, Well-nourished Eyes: STEVEN, EOMI, Conjunctiva clear ENT: Ears normal, Nose normal, Oropharynx normal Respiratory: Airway patent, Breath sounds clear, Breath sounds equal, Respirations nonlabored Cardiovascular: RRR, Pulses normal, No rub, No murmur GI/: Soft, Nontender, No masses, Bowel sounds normal, No Organomegaly Musculoskeletal: Normal strength, ROM intact, No edema, No calf tenderness Skin: Warm, Dry (see photos) Neurological: Sensation intact, Motor intact, Reflexes intact, Cranial nerves intact, Alert, Oriented Psychiatric: Affect appropriate, Mood appropriate Critical Care Note - Critical Care Note Total Time (mins): 0 Course - Course Vital Signs: Temp Pulse Resp BP Pulse Ox 03/13/18 17:40 98.1 F 87 20 133/82 97 Departure - Departure Time of Disposition: 17:56 Disposition: HOME SELF-CARE Discharge Problem: Injury of hand, Hand pain Cellulitis Qualifiers: Site of cellulitis of extremity: finger Laterality: right Instructions: Laceration (ED), Cellulitis (ED) Condition: Good Pt referred to PMD for follow-up: Yes IPMP verified?: No Additional Instructions: Please call your Family Physician as soon as possible to schedule a follow-up appointment. Prescriptions: Amoxicillin 500 mg PO Q8HR #21 tablet Allergies/Adverse Reactions: Allergies codeine Adverse Reaction (Verified 03/13/18 17:49) Penicillins Adverse Reaction (Verified 03/13/18 17:49) Home Medications: Ambulatory Orders Albuterol Sulfate [Ventolin Hfa] 18 gm IH DIRECTED 05/03/13 Duloxetine HCl [Cymbalta] 60 mg PO BEDTIME 05/03/13 Esomeprazole Magnesium [Nexium] 40 mg PO DAILY PRN 05/03/13 Fluticasone Propionate 110 Mcg [Flovent Hfa 110 Mcg] 110 mcg MARCY DAILY 05/03/13 Omeprazole [Prilosec] 20 mg PO QDAC PRN 05/03/13 Zolpidem Tartrate 10 mg PO BEDTIME 05/03/13 Lorazepam [Ativan] 0.5 mg PO QID #20 tablet 12/06/14 Oxycodone-Acetaminophen 10-325 [Percocet 10-325] 1 tab PO Q8H PRN 09/28/17 Potassium Chloride [K-Dur] 20 meq PO BIDWM tab 10/05/17 Amoxicillin 500 mg PO Q8HR #21 tablet 03/13/18
== END 2018-03-13 18:03 | disposition home or self-care (01) ==
LOC: ED 17:40
DX: L03.011 Cellulitis of right finger (principal); S61.411A Laceration without foreign body of right hand, initial encounter; F17.210 Nicotine dependence, cigarettes, uncomplicated
CPT/HCPCS: 99282

== ENCOUNTER 2018-04-19 09:50 | Outpatient (CLI) ==
--- NOTE | 2018-04-19 11:30 | CT ---
EXAM: CT THORAX HISTORY: Cough. TECHNIQUE: CT thorax with intravenous contrast. Multiplanar images presented. 75 ml Omnipaque COMPARISON: 10/02/2017 FINDINGS: Normal heart size. No pericardial effusion. Mild atherosclerotic disease. Scattered mediastinal an d hilar lymph nodes are decreased in size and number since previous exam, nonspecific. Lungs reveal mild hyperinflation. There is mild, apical paraseptal emphysema. There is subtle fluff y upper zone airspace infiltrates. Interval development of several right-sided pulmonary nodules mos t of which measure about 3.5 mm or less. Largest entity measures about 7.3 mm. There is no pneumotho rax or pleural fluid. The bones are within normal limits. Spinal stimulator noted superimposed over the mid thoracic spine posteriorly. Incidental note of some prominent perigastric/mid upper abdominal lymph nodes. IMPRESSION: 1. Mild fluffy airspace infiltrates in the upper lung zones bilaterally consistent with pneumonia. B ackground of mild pulmonary emphysema. 2. Interval development of several small right sided pulmonary nodules which could be postinflammato ry in nature or malignant. Follow-up CT is recommended. 3. Decreased size and number of mediastinal / hilar lymph nodes since previous exam. Stable promine nt upper abdominal and perigastric lymph nodes which are indeterminate.
== END 2018-04-19 09:51 | disposition home or self-care (01) ==
LOC: RAD 09:50
PROVIDERS: ATTEND Family Medicine
DX: R93.8 Abnormal findings on diagnostic imaging of other specified body structures (principal); R05 Cough
CPT/HCPCS: 36415; 82565

== ENCOUNTER 2018-08-23 19:06 | Emergency (ER) ==
[2018-08-23 19:13] VITALS: TEMP 100; BMI 25.7
[2018-08-23 20:03] VITALS: BP 123/79
--- NOTE | 2018-08-23 20:22 | ED.PDOC ---
General ED Provider: Dr. MARIANO CISNEROS-ER Chief Complaint: Respiratory Complaint Stated Complaint: olivier got a raspy throat and a fever for a week Time Seen by Physician: 19:10 Mode of Arrival: Walk-In Information Source: Patient Exam Limitations: No limitations Primary Care Provider: JEFFERSON AGUILAR Nursing and Triage Documentation Reviewed and Agree: Yes Does patient meet sepsis criteria?: No System Inflammatory Response Syndrome: Not Applicable Sepsis Protocol: For patient's 13 years and over: Temp is 96.8 and below OR 101 and greater Pulse >90 BPM Resp >20/minute Acutely Altered Mental Status Are patient's symptoms suggestive of a new infection, such as: -Pneumonia -Skin, Soft Tissue -Endocarditis -UTI -Bone, Joint Infection -Implantable Device -Acute Abdominal Infection -Wound Infection -Meningitis -Blood Stream Catheter Infection -Unknown Respiratory Complaint Exam - Respiratory Complaint/Exam Onset/Duration: 1 week Symptoms Are: Still present Timing: Constant Initial Severity: Mild Current Severity: Mild Location: Chest Character: Reports: Non-productive cough Aggravating: Reports: URI Alleviating: Reports: None Associated Signs and Symptoms: Reports: URI Related History: Reports: Similar episode History of Healthcare-Acquired Pneumonia: No Pseudomonas Risk Factors: Reports: None Status Asthmaticus Risk Factors: Reports: None Home Oxygen Use: No Recent Stress Test: No Recent Echo/LV Function: No Current Antibiotic Use: No Current Asthma Medication Use: No Respiratory Distress: None Inadequate Respiratory Effort: No Dysphagia Present: No Stridor Present: No JVD Present: No Accessory Muscle Use: No Retractions: Not Present Diminished Breath Sounds: No Sinus Tenderness: None Grunting Respirations: No Kussmaul Respirations: No Differential Diagnoses: URI Review of Systems - Review Of Systems Constitutional: Reports: No symptoms, Fever Eyes: Reports: No symptoms Ears, Nose, Mouth, Throat: Reports: Nose discharge Respiratory: Reports: Cough Cardiac: Reports: No symptoms GI: Reports: No symptoms : Reports: No symptoms Musculoskeletal: Reports: No symptoms Skin: Reports: No symptoms Neurological: Reports: No symptoms Endocrine: Reports: No symptoms Hematologic/Lymphatic: Reports: No symptoms All Other Systems: Reviewed and Negative Past Medical History - Past Medical History Previously Healthy: Yes Endocrine: Reports: None Cardiovascular: Reports: None Respiratory: Reports: None Hematological: Reports: None Gastrointestinal: Reports: None Genitourinary: Reports: None Neuro/Psych: Reports: None Musculoskeletal: Reports: None Cancer: Reports: None - Surgical History General Surgical History: Reports: None - Family History Family History: Reports: None - Social History Smoking Status: Current every day smoker, Light tobacco smoker Hx Substance Use: No Alcohol Screening: None Physical Exam - Physical Exam Appearance: Well-appearing, No pain distress, Well-nourished Pain Distress: Mild Eyes: STEVEN, EOMI, Conjunctiva clear ENT: Ears normal, Oropharynx normal, Rhinorrhea Neck: Supple Respiratory: Airway patent, Breath sounds clear, Breath sounds equal, Respirations nonlabored, Rhonchi Cardiovascular: RRR GI/: Soft, Nontender, No masses, Bowel sounds normal, No Organomegaly Musculoskeletal: Normal strength, ROM intact, No edema, No calf tenderness Skin: Warm, Dry, Normal color Neurological: Sensation intact, Motor intact, Reflexes intact, Cranial nerves intact, Alert, Oriented Psychiatric: Affect appropriate, Mood appropriate Interpretation - Radiology Interpretation Radiology Interpretation By: Radiologist Radiology Results: Positive Exam Interpreted: CT Scan, Other ("ground glass opacity") Critical Care Note - Critical Care Note Total Time (mins): 0 Course - Course Hematology/Chemistry: 08/23/18 19:31 08/23/18 19:31 Orders, Labs, Meds: Lab Review 08/23/18 08/23/18 08/23/18 19:31 19:31 19:31 WBC 11.58 H RBC 4.00 L Hgb 12.0 L Hct 34.7 L MCV 86.8 MCH 30.0 MCHC 34.6 RDW Coeff of Irina 13.2 Plt Count 341 Immature Gran % (Auto) 0.3 Neut % (Auto) 84.0 Lymph % (Auto) 8.6 L Curry % (Auto) 6.0 Eos % (Auto) 0.8 Baso % (Auto) 0.3 Immature Gran # (Auto) 0.0 Neut # (Auto) 9.7 H Lymph # (Auto) 1.0 Curry # (Auto) 0.7 Eos # (Auto) 0.1 Baso # (Auto) 0.0 Sodium 127.5 L Potassium 3.53 Chloride 91.0 L Carbon Dioxide 30.0 Anion Gap 10.03 BUN 5.1 L Creatinine 0.73 Estimated GFR (MDRD) 109.00 BUN/Creatinine Ratio 6.98 Glucose 133.5 H Calcium 9.81 Total Bilirubin 0.48 AST 36.1 ALT 15.8 Alkaline Phosphatase 77.2 Total Protein 7.11 Albumin 4.04 Globulin 3.07 Albumin/Globulin Ratio 1.31 Influ A Molecular Assay Negative by naat Influ B Molecular Assay Negative by naat Orders Category Date Time Status BLOOD CULTURE (ED ONLY) Stat LAB 08/23/18 19:31 Received CBC W/ AUTO DIFF Stat LAB 08/23/18 19:31 Completed COMPREHENSIVE METABOLIC PANEL Stat LAB 08/23/18 19:31 Completed FLU A/B MOLECULAR Stat LAB 08/23/18 19:31 Completed MOLECULAR GROUP A STREP Stat LAB 08/23/18 19:31 Completed Clarithromycin [Biaxin] MEDS 08/23/18 20:30 Stat 500 mg PO ONCE STA CT CHEST W/O CONTRAST Stat RADS 08/23/18 19:16 Completed Vital Signs: Temp Pulse Resp BP Pulse Ox 08/23/18 20:03 123/79 08/23/18 19:07 100 F H 109 H 20 150/91 H 96 Departure - Departure Time of Disposition: 20:32 Disposition: HOME SELF-CARE Discharge Problem: Bronchitis Instructions: Acute Bronchitis (ED) Condition: Good Pt referred to PMD for follow-up: Yes IPMP verified?: No Additional Instructions: biaxin 500mg bid x 7 days--f/u with dr aguilar Allergies/Adverse Reactions: Allergies codeine Adverse Reaction (Verified 08/23/18 19:12) Penicillins Adverse Reaction (Verified 08/23/18 19:12) Home Medications: Ambulatory Orders Albuterol Sulfate [Ventolin Hfa] 18 gm IH DIRECTED 05/03/13 Duloxetine HCl [Cymbalta] 60 mg PO BEDTIME 05/03/13 Fluticasone Propionate 110 Mcg [Flovent Hfa 110 Mcg] 110 mcg MARCY DAILY 05/03/13 Lorazepam [Ativan] 0.5 mg PO QID #20 tablet 12/06/14 Oxycodone-Acetaminophen 10-325 [Percocet 10-325] 1 tab PO Q8H PRN 09/28/17 Potassium Chloride [K-Dur] 20 meq PO BIDWM tab 10/05/17 Disposition Discussed With: Patient
--- NOTE | 2018-08-23 20:24 | CT ---
EXAM: CT scan of the chest without contrast HISTORY: Fever TECHNIQUE: Helical imaging of the chest was performed without contrast. 5 mm thin axial images and coronal and sagittal reconstructions were provided for interpretation. Comparison 04/19/2018 CT scan of the chest. FINDINGS: Diffuse ground-glass opacities are seen within the upper lobe distribution bilaterally. T he findings appear to be worsening when compared to previous study. There is no pleural effusion. Vesta ng volumes are normal. The heart is normal size. No mediastinal abnormalities are seen. No lytic o r blastic lesions are seen within the osseous structures. There has been previous cholecystectomy. IMPRESSION: Ground-glass opacities are seen within the upper lung distribution, concerning for pneum onia. Findings appear to be worsening when compared to previous study.
[2018-08-23] MEDS ORDERED: BIAXIN PO STA (20:30)
== END 2018-08-23 20:43 | disposition home or self-care (01) ==
LOC: ED 19:06
DX: J40 Bronchitis, not specified as acute or chronic (principal); F17.210 Nicotine dependence, cigarettes, uncomplicated
CPT/HCPCS: 36415; 80053; 85025; 87040; 87502; 87651; 99283